=== PATIENT | male | born 2005 | race Caucasian/White ===

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

== ENCOUNTER 2025-06-27 07:48 | Emergency (ER) | payer BC, OTHER ==
[2025-06-27] MEDS: Ketorolac 30 MG/ML SDV IM ONE (08:26)
[2025-06-27] MEDS: Ondansetron 4 MG Tab.DIS PO ONE (08:26)
== END 2025-06-27 09:08 | disposition home or self-care (01) ==
LOC: DL.ED 07:48
DX: G43.909 Migraine, unspecified, not intractable, without status migrainosus (principal); Z79.899 Other long term (current) drug therapy
CPT/HCPCS: 96372; 99283; A9270; J1885